=== PATIENT | male | born 1990 | race Caucasian/White ===

== ENCOUNTER 2022-03-17 13:57 | Emergency (ER) | payer OTHER ==
[2022-03-17] MEDS ORDERED: Boostrix 0.5 ML (Tdap) VIAL (>/=7 yrs of age) ONE (16:04)
[2022-03-17] MEDS ORDERED: Bupivacaine 0.25% 10 ML VIAL ONE (16:15)
[2022-03-17] MEDS ORDERED: Bacitracin 1 PK ONE (17:47)
== END 2022-03-17 17:59 | disposition home or self-care (01) ==
LOC: ERS 13:57
DX: S61.412A Laceration without foreign body of left hand, initial encounter (principal); S51.812A Laceration without foreign body of left forearm, initial encounter; W29.3XXA Contact with powered garden and outdoor hand tools and machinery, initial encounter
CPT/HCPCS: 12034; 90471; 90715; S0020